=== PATIENT | female | born 2000 | race Caucasian/White ===

== ENCOUNTER 2024-01-12 10:55 | Emergency (ER) | payer BC, SELFPAY ==
--- NOTE | ~2024-01-12 | US_ITS ---
EXAMINATION: US RETROPERITONEAL LIMITED, RIGHT (RENAL ONLY) CLINICAL INFORMATION: Flank pain. COMPARISON: None available. TECHNIQUE: Grayscale and Doppler imaging of the right kidney was performed. FINDINGS: RIGHT KIDNEY: 11 x 3.1 x 4.2 cm (SAG x AP x TRV). The kidney is normal in size, contour, and echogenicity. Renal cortical thickness is normal. Right lower pole renal stone measuring up to 0.3 cm. No hydronephrosis. No focal parenchymal lesion. US/US renal RT IMPRESSION: Right lower pole renal stone measuring 0.3 cm. No right-sided hydronephrosis. Electronically signed by: Isidoro Dunn MD 01/12/2024 02:05 PM [facility]
[2024-01-12 10:57] VITALS: BP 123/96; PULSE 94; RESP 20; TEMP 37.2; O2SAT 98; BMI 34.3
[2024-01-12 11:30] LABS: Basophils Absolute Auto 0.1 X10*3/uL (0.0-0.2); Basophils Percent Auto 0.8 % (0-2); Eosinophils Absolute Auto 0.1 X10*3/uL (0.0-0.4); Eosinophils Percent Auto 0.6 % (0-4); Hematocrit 40.8 % (37.0-47.0); Hemoglobin 14.2 g/dl (12.0-16.0); Imm Gran Abs Auto 0.01 X10*3/uL (0.00-0.03); Imm Gran Pct Auto 0.1 % (0.0-0.4); Lymphocytes Absolute Auto 1.9 X10*3/uL (1.2-4.9); Lymphocytes Percent Auto 21.6 % (20-40); MANUAL DIFF FLAG NO; Mean Corpuscular HGB Conc 34.8 g/dl (31.0-35.0); Mean Corpuscular Hemoglobin 30.4 pg (27.0-33.0); Mean Corpuscular Volume 87.4 fL (80.0-98.0); Mean Platelet Volume 10.1 fL (9.4-12.3); Monocytes Absolute Auto 0.6 X10*3/uL (0.1-1.2); Neutrophils Absolute Auto 6.1 x10*3/uL (2.0-8.3); Neutrophils Percent Auto 69.9 % (45-73); Platelet Count 271 X10*3/uL (160-400); Red Blood Count 4.67 X10*6/uL (4.20-5.50); Red Cell Distribution Width 12.6 % (11.0-16.0); White Blood Count 8.7 X10*3/uL (4.8-10.8)
[2024-01-12 11:32] LABS: Appearance Urine Turbid; Color Urine Yellow; Glucose Urine UA Negative (Negative); Leukocyte Esterase Urine Negative (Negative); Nitrite Urine Negative (Negative); Specific Gravity - Urine 1.015 (1.005-1.025); Urine Blood Negative (Negative); Urine Ketones Negative (Negative); Urine Protein Negative (Neg-Trace)
[2024-01-12 11:35] LABS: UPreg QC Valid YES; Urine Pregnancy NEGATIVE (NEGATIVE)
[2024-01-12 11:50] LABS: Alanine Aminotransferase 21 U/L (0-31); Albumin Level 4.2 g/dL (3.5-5.0); Alkaline Phosphatase 131 U/L (39-117); Anion Gap 13 (12-20); Aspartate Amino Transferase 30 U/L (5-31); Bilirubin Total 0.5 mg/dL (0.0-1.0); Blood Urea Nitrogen 13 mg/dL (9-16); Calcium 9.3 mg/dL (8.4-10.2); Carbon Dioxide 24 mmol/L (22-29); Chloride 106 mmol/L (96-108); Creatinine Clr Calc Pharmacy 96.7; Estimated Glomerular Filt Rate > 60; Glucose Random 108 mg/dL (60-115); Potassium 4.3 mmol/L (3.3-5.1); Sodium 139 mmol/L (135-145); Total Protein 7.2 g/dL (6.5-8.0)
--- NOTE | 2024-01-12 12:18 | ED_ITS ---
HPI - General Adult General Chief complaint: Nausea/Vomiting/Diarrhea Stated complaint: Abd Pain Time Seen by Provider: 01/12/24 12:00 Source: patient and family Limitations: no limitations History of Present Illness ED Provider: ELPIDIO HPI narrative: 23 yo female with PMH of GERD uses zantac and PRN tums no prior abdominal surgery reports intermittent abdominal pain URI symptoms nausea and vomiting. No diarrhea. Has pain on and off in lower abdomen and R flank has hx of stones. No sick contacts, no travels, no fevers, no pain right now. She gets very anxious when she is sick and notes her symptoms are not helping her. complaint: URI, n/v Onset (ago): day(s) (Saturday) Location: abdomen Radiation: non-radiation Severity: mild Pain Consistency: intermittent Relieving factors: none Exacerbating factors: eating Associated symptoms: loss of appetite, malaise, nausea/vomiting, weakness and other (runny nose) Treatments prior to arrival: none Related Data Previous Rx's ?Medication ?Instructions ?Recorded famotidine 20 mg tablet (Pepcid) 20 mg PO DAILY PRN abdominal 01/12/24 discomfort #30 tabs ondansetron 4 mg disintegrating 4 mg PO Q8H PRN nausea and 01/12/24 tablet vomiting #20 tabs Allergies Allergy/AdvReac Type Severity Reaction Status Date / Time trazodone Allergy Shortness Verified 01/12/24 10:59 of Breath mirtazapine [From Remeron] AdvReac Irritable Verified 01/12/24 10:59 Review of Systems 2 Review of Systems: Constitutional : No Fever, No Chills ENT/Mouth : No sore throat, pos Rhinorrhea Eyes: No Swelling, No Redness Cardiovascular : No Chest Pain, No SOB, NoEdema Respiratory : No Cough, No Sputum, No Wheezing Gastrointestinal : Positive Nausea, Positive Vomiting, no Diarrhea, positive abdominal Pain, No Hematochezia, No Melena Genitourinary : No Dysuria, No Urinary Frequency, No Hematuria, No Urgency Musculoskeletal : No joint pain, No Myalgias, No Joint Swelling Skin : No Skin Lesions, No rash Neuro : No Weakness, No Numbness, No Dizziness, No Headache Psych : No Anxiety/Panic, No Depression All other systems reviewed and are negative. [facility] Past Medical History Attestation statement: The following information was validated with the patient. Source: old records reviewed Medical History Anxiety GERD (gastroesophageal reflux disease) Social History Social History (Updated 01/12/24 @ 12:29 by Yolanda Valenzuela DO) Patient Tobacco Use Status: Never used Tobacco Smoked in Last 30 Days: No Use of substances other than those prescribed or required for medical reasons: No Advance Directives: No Advance Directives Information Provided: Yes Physical Exam ED Vital Signs: Vital Signs - 24 hr 01/12/24 10:57 01/12/24 13:23 Temperature 98.9 F 98.2 F Pulse Rate 94 88 Respiratory Rate 20 18 Blood Pressure 123/96 H 123/84 Pulse Oximetry 98 97 Oxygen Delivery Method Room Air Room Air BMI result Body Mass Index 34.3 Appearance: Alert. Oriented X3. No acute distress. Eyes: Pupils equal, round and reactive to light. ENT: Pharynx normal. Neck: Normal inspection. Neck supple. CVS: Normal heart rate and rhythm. Pulses normal. Respiratory: No respiratory distress. Breath sounds normal. Abdomen: Soft and nontender. Skin: Skin warm and dry. Normal skin color. Normal skin turgor. Extremities: No lower extremity edema. No calf ttp Neuro: Oriented X 3. No motor deficit. No sensory deficit.he is up Medications Administered Discontinued Medications Generic Name Dose Route Start Last Admin Trade Name Freq PRN Reason Stop Dose Admin Diphenhydramine HCl 25 mg 01/12/24 12:15 01/12/24 12:52 Diphenhydramine Hcl 50 Mg/Ml Vial IVPUSH 01/12/24 12:16 25 mg ONCE ONE Administration Famotidine 20 mg 01/12/24 12:15 01/12/24 12:52 Famotidine/Pf 20 Mg/2 Ml Vial IVPUSH 01/12/24 12:16 20 mg ONCE ONE Administration Lactated Ringer's 1,000 mls @ 999 mls/hr 01/12/24 12:15 01/12/24 12:53 Lr IV 01/12/24 13:15 999 mls/hr .Q1H1M ONE Administration Lorazepam 1 mg 01/12/24 13:18 01/12/24 13:27 Lorazepam 2 Mg/Ml Vial IVPUSH 01/12/24 13:19 1 mg ONCE ONE Administration Metoclopramide HCl 10 mg 01/12/24 12:16 01/12/24 12:52 Metoclopramide Hcl 10 Mg/2 Ml Vial IVPUSH 01/12/24 12:17 10 mg ONCE ONE Administration Medical Decision Making Medical Decision Making [facility] Narrative: 23 yo female with PMH of GERD uses zantac and PRN tums also kidney stones has c/o runny nose and URI x 1 week then started with n/v and R flank pain on and off - at this time will order viral panel, labs, UA and renal colic, IV medications for supportive care Differential Diagnosis Differential Diagnoses: The differential diagnosis associated with the presentation includes URI, viral syndrome, renal colic Admission/Observation Consideration of admission/observation: Escalation of care including admission/observation considered feels much better reassuring workup stable for DC Lab Data [facility] Lab Attestation statement: I reviewed the patient's lab results. 01/12/24 11:22 01/12/24 11:22 Labs: Lab Results 01/12/24 01/12/24 Range/Units 11:22 11:25 WBC 8.7 (4.8-10.8) X10*3/uL RBC 4.67 (4.20-5.50) X10*6/uL Hgb 14.2 (12.0-16.0) g/dl Hct 40.8 (37.0-47.0) % MCV 87.4 (80.0-98.0) fL MCH 30.4 (27.0-33.0) pg MCHC 34.8 (31.0-35.0) g/dl RDW 12.6 (11.0-16.0) % Plt Count 271 (160-400) X10*3/uL MPV 10.1 (9.4-12.3) fL Immature Gran % (Auto) 0.1 (0.0-0.4) % Neut % (Auto) 69.9 (45-73) % Lymph % (Auto) 21.6 (20-40) % [place] % (Auto) 7.0 (2-11) % Eos % (Auto) 0.6 (0-4) % Baso % (Auto) 0.8 (0-2) % Lymph # (Auto) 1.9 (1.2-4.9) X10*3/uL [place] # (Auto) 0.6 (0.1-1.2) X10*3/uL Eos # (Auto) 0.1 (0.0-0.4) X10*3/uL Baso # (Auto) 0.1 (0.0-0.2) X10*3/uL Abs Immat Gran (auto) 0.01 (0.00-0.03) X10*3/uL Absolute Neuts (auto) 6.1 (2.0-8.3) x10*3/uL Absolute Nucleated RBC 0.000 (0.0-0.012) X10*3/uL Nucleated RBC % (auto) 0.0 (0.0-0.2) /100WBC Sodium 139 (135-145) mmol/L Potassium 4.3 (3.3-5.1) mmol/L Chloride 106 (96-108) mmol/L Carbon Dioxide 24 (22-29) mmol/L Anion Gap 13 (12-20) BUN 13 (9-16) mg/dL Creatinine 0.81 (0.5-1.4) mg/dL Estim Creat Clear Calc 96.7 Estimated GFR > 60 Random Glucose 108 (60-115) mg/dL Calcium 9.3 (8.4-10.2) mg/dL Total Bilirubin 0.5 (0.0-1.0) mg/dL AST 30 (5-31) U/L ALT 21 (0-31) U/L Alkaline Phosphatase 131 H (39-117) U/L Total Protein 7.2 (6.5-8.0) g/dL Albumin 4.2 (3.5-5.0) g/dL Lipase 34 (8-78) U/L Urine Color Yellow Urine Appearance Turbid Urine pH 8.0 (5.0-9.0) Ur Specific [place] 1.015 (1.005-1.025) Urine Protein Negative (Neg-Trace) mg/dL Urine Glucose (UA) Negative (Negative) mg/dL Urine Ketones Negative (Negative) mg/dL Urine Blood Negative (Negative) Urine Nitrite Negative (Negative) Ur Leukocyte Esterase Negative (Negative) Urine Test NEGATIVE (NEGATIVE) Independent Interpretation I performed an independent interpretation of an: Ultrasound (no hydro) Radiology Impression Discussion of test interpretation with radiology: I have reviewed the radiologist's reading. Independent Historian Clinical information obtained from an independent historian. History obtained from or confirmed by: Other (family) External Record Review External record reviewed: Outpatient record Discharge Plan Discharge Clinical Impression: Nausea & vomiting Qualifiers: Vomiting type: unspecified Qualified Code(s): R11.2 - Nausea with vomiting, unspecified Patient Disposition: Home, Self-Care Instructions: Acute Nausea and Vomiting (ED) Additional Instructions: return for any worsening symptoms or concerns labs reassuring, urine reassuring ultrasound shows stone but this is not blocking and not the source of pain stay hydrated, eat a bland diet for the next 48 hours RIGHT KIDNEY: 11 x 3.1 x 4.2 cm (SAG x AP x TRV). The kidney is normal in size, contour, and echogenicity. Renal cortical thickness is normal. Right lower pole renal stone measuring up to 0.3 cm. No hydronephrosis. No focal parenchymal lesion. US/US renal RT IMPRESSION: Right lower pole renal stone measuring 0.3 cm. No right-sided hydronephrosis. Electronically signed by: Isidoro Dunn MD 01/12/2024 02:05 PM [facility] Prescriptions: New famotidine [Pepcid] 20 mg tablet 20 mg PO DAILY PRN (Reason: abdominal discomfort) Qty: 30 0RF ondansetron 4 mg tablet,disintegrating 4 mg PO Q8H PRN (Reason: nausea and vomiting) Qty: 20 0RF Print Language: Romanian
[2024-01-12 12:31] LABS: Lipase 34 U/L (8-78)
[2024-01-12] MEDS: diphenhydrAMINE HCL 50 MG/ML VIAL 25 MG IVPUSH (12:52)
[2024-01-12] MEDS: Famotidine/PF 20 MG/2 ML VIAL IVPUSH (12:52)
[2024-01-12] MEDS: Metoclopramide HCl 10 MG/2 ML VIAL IVPUSH (12:52)
[2024-01-12] MEDS: Lactated Ringers 1,000 ML 999 ML IV (12:53)
[2024-01-12 13:23] VITALS: BP 123/84; PULSE 88; RESP 18; TEMP 36.8; O2SAT 97
[2024-01-12] MEDS: LORazepam 2 MG/ML VIAL 1 MG IVPUSH (13:27)
[2024-01-12 15:06] VITALS: BP 123/84; PULSE 88; RESP 18; TEMP 36.8; O2SAT 97
[2024-01-12 15:11] LABS: Influenza A PCR NEGATIVE (Negative); Influenza B PCR NEGATIVE (Negative); Resp Syncy Virus RNA Qual PCR NEGATIVE (Negative); SARS COV2 PCR INHOUSE NEGATIVE (Negative)
== END 2024-01-12 15:07 | disposition home or self-care (01) ==
PROVIDERS: Emergency Provider Emergency Medicine
DX: R11.2 Nausea with vomiting, unspecified (principal); R09.89 Other specified symptoms and signs involving the circulatory and respiratory systems; R53.1 Weakness; R10.2 Pelvic and perineal pain; Z03.818 Encounter for observation for suspected exposure to other biological agents ruled out; Z79.899 Other long term (current) drug therapy
CPT/HCPCS: 0241U; 36415; 76775; 80053; 81003; 81025; 83690; 85025; 96365; 96375; 99284; J1200; J2060; J2765; J7120